=== PATIENT | male | born 1970 | race Caucasian/White ===

== ENCOUNTER 2016-08-13 15:31 | Emergency (ER) | payer BC, MEDICAID ==
[2016-08-13 15:41] VITALS: BP 116/87
--- NOTE | 2016-08-13 16:05 | ED Physician Chart ---
Chief Complaint/HPI - Patient Information Date Seen:: 08/13/16 Time Seen:: 15:59 Chief Complaint:: rt knee pain History of Present Illness:: pt has had pain at rt knee x 2-3 days. thinks he had a spider bite. had some drainage last nt. not sure of fever but felt warm last nt. had a boil in lt armpit 2 ma. denies other hosp admissions. on asa but denies other meds. no pmh. nkda. no local pmd. Allergies:: Allergies Allergy/AdvReac Type Severity Reaction Status Date / Time No Known Allergies Allergy Verified 08/13/16 15:38 Vitals:: Vital Signs - 8 hr 08/13/16 08/13/16 15:40 15:41 Temp 98.1 F HR 99 RR 16 BP 116/87 116/87 O2 Sat % 98 Historian:: Patient, Family Member Review of Systems - Review of Systems General/Constitutional: Fever (?), No fever, No chills, No weight loss, No weakness, No diaphoresis, No edema, No loss of appetite Skin: No skin lesions, Rash, No bruising Head: No headache, No light-headedness Eyes: No loss of vision, No pain, No diplopia ENT: No earache, No nasal drainage, No sore throat, No tinnitus Neck: No neck pain, No swelling, No thyromegaly, No stiffness, No mass noted Cardio Vascular: No chest pain, No palpitations, No PND, No orthopnea, No edema Pulmonary: No SOB, No cough, No sputum, No wheezing GI: No nausea, No vomiting, No diarrhea, No pain, No melena, No hematochezia, No constipation, No hematemesis G/U: No dysuria, No frequency, No hematuria Musculoskeletal: No bone or joint pain, No back pain, No muscle pain Endocrine: No polyuria, No polydipsia Psychiatric: No prior psych history, No depression, No anxiety, No suicidal ideation Hematopoietic: No bruising, No lymphadenopathy Allergic/Immuno: No urticaria, No angioedema Neurological: No syncope, No focal symptoms, No weakness, No paresthesia, No headache, No seizure, No dizziness, No confusion, No vertigo Past Medical History - Past Medical History Past Medical History: No significant medical hx, Other (boil rt armpit 2m.a.) Social History: Smoker Medication: Reviewed Family Medical History - Family Member Mother Hx Family Cancer: No Hx Family Coronary Artery Disease: No Hx Family Congestive Heart Failure: No Hx Family Hypertension: No Hx Family Stroke: No Hx Family Diabetes: No Hx Family Dementia: No Hx Family AIDS: No Hx Family HIV: No Hx Family Psychiatric Problems: No Hx Family Tuberculosis: No Physical Exam - Physical Examination General/Constitutional: Awake, Well-developed, well-nourished, Alert, No distress, GCS 15, Non-toxic appearing, Ambulatory Head: Atraumatic Eyes: Lids, conjuctiva normal, PERRL, EOMI Skin: Nl inspection, No rash, No skin lesions, No ecchymosis, Well hydrated, No lymphadenopathy ENMT: External ears, nose nl, Nasal exam nl, Lips, teeth, gums nl Neck: Nontender, Full ROM w/o pain, No JVD, No nuchal rigidity, No bruit, No mass, No stridor Respiratory: Nl effort/Exclusion, Clear to Auscultation, No Wheeze/Rhonchi/Rales Cardio Vascular: RRR, No murmur, gallop, rubs, NL S1 S2 GI: No tenderness/rebounding/guarding, No organomegaly, No hernia, Normal BS's, Nondistended, No mass/bruits, No McBurney tenderness : No CVA tenderness Extremities: No tenderness or effusion, Full ROM, normal strength in all extremities, No edema, Normal digits & nails Other Extremities comments:: there is a 1.5 inch red warm spot at medial low rt knee. it has a central scab about 1 cm across and has apparently been draining before. there is not fluctuance. knee has no effusion. pt can passively bend knee ot 90 degrees with no apparent pain. no calf edema. no demi sx. Neuro/Psych: Alert/oriented, DTR's symmetric, Normal sensory exam, Normal motor strength, Judgement/insight normal, Mood normal, Normal gait, No focal deficits Misc: normal gait, Normal back, No paraspinal tenderness Labs/Radiology/EKG Results - Lab Results Results: Laboratory Tests 08/13/16 08/13/16 08/13/16 16:21 16:21 16:21 WBC 11.3 H RBC 4.94 Hgb 14.3 Hct 42.8 MCV 86.6 MCH 29.0 MCHC Differential 33.4 RDW 12.8 Plt Count 230 MPV 7.7 Neutrophils % 71.5 Lymphocytes % 16.1 L Monocytes % 8.4 Eosinophils % 0.8 Basophils % 3.2 H Sodium 134 L Potassium 4.1 Chloride 102 Carbon Dioxide 27.8 Anion Gap 8.3 BUN 15 Creatinine 1.2 Est GFR ( Amer) > 60.0 Est GFR (Non-Af Amer) > 60.0 BUN/Creatinine Ratio 12.5 Glucose 132 H Whole Bld Lactic Acid 0.84 Calcium 9.6 Total Bilirubin 0.7 AST 13 ALT 27 Alkaline Phosphatase 56 Total Protein 6.6 Albumin 4.2 Globulin 2.4 Albumin/Globulin Ratio 1.8 Assessment - Assessment General Assessment: cx obtained from rt medial knee by scraping off scab and small drop of pus exuded. no deep abscess identified. sent to lab ED Septic Shock - . Is Septic Shock (SBP<90, OR Lactate>4 mmol\L) present?: No - <6hrs of presentation: Vital Signs: Vital Signs - 8 hr 08/13/16 08/13/16 15:40 15:41 Temp 98.1 F HR 99 RR 16 BP 116/87 116/87 O2 Sat % 98 Reassessment (Disposition) - Reassessment Reassessment:: dw pt...labs ok x slt wbc elevation. no fever or instability seen in ed. pt appears stable enough to try outpt regimen of keflex w norco for pain. he requests crutch. I have seen no evidence of knee joint effusion and pt has good rom ability to bend knee. have given fu plan..see pmd or return here in 2-3 days. return sooner if high fever/spreading redness.. rx kef;shahla, norco 5s no 15 Reassessment Condition:: Improved - Diagnosis Diagnosis:: local cellulitis medial rt knee region. - Aftercare/Follow up Instructions Aftercare/Follow-Up Instructions:: Counseled pt & family regarding lab results/ diagnosis & need follow up - Patient Disposition Discharge/Transfer:: Home Condition at Disposition:: Improved ED Discharge Plan - Patient Disposition Instructions: Cellulitis Accepting Physician: Oswaldo Navarrete [Active] - 1-3 Days
[2016-08-13] MEDS ORDERED: ceFAZolin 2 GM in Sodium Chloride 0.9% 100 ML IV ONE (16:09)
[2016-08-13 16:32] LABS: % BASOPHILS 3.2 % (0.0-2.0); % EOSINOPHILS 0.8 % (0.0-5.0); % LYMPHOCYTES 16.1 % (20.0-50.0); % MONOCYTES 8.4 % (2.0-10.0); % NEUTROPHILS 71.5 % (40.0-80.0); HEMATOCRIT 42.8 % (39.0-49.0); HEMOGLOBIN 14.3 gm/dL (13.2-17.3); MEAN CELL VOLUME 86.6 fl (80-99); MEAN CORPUSCULAR HGB CONC 33.4 pg (28.0-36.0); MEAN PLATELET VOLUME 7.7 fl; NEUTROPHILE ABSOLUTE 8.1 Th/cmm (1.8-8.0); PLATELET COUNT 230 Th/cmm (150-400); RED BLOOD COUNT 4.94 Mil/cmm (4.30-5.70); RED CELL DISTRIBUTION WIDTH 12.8 % (11.5-20.0); WHITE BLOOD COUNT 11.3 Th/cmm (4.8-10.8)
[2016-08-13 16:49] LABS: ALB/GLOB RATIO 1.8 (1.0-1.8); ALKALINE PHOSPHATASE 56 U/L (34-104); ANION GAP 8.3 (7.0-16.0); BILIRUBIN,TOTAL 0.7 mg/dL (0.3-1.0); BUN - UREA NITROGEN 15 mg/dL (7-25); BUN/CREATININE RATIO 12.5; CALCIUM SERUM 9.6 mg/dL (8.6-10.3); CARBON DIOXIDE 27.8 mEq/L (21.0-31.0); CHLORIDE 102 mEq/L (98-107); CREATININE - SERUM 1.2 mg/dL (0.7-1.3); GLUCOSE 132 mg/dL (70-105); POTASSIUM SERUM 4.1 mEq/L (3.5-5.1); SGOT 13 U/L (13-39); SGPT/ALT 27 U/L (7-52); SODIUM SERUM 134 mEq/L (136-145)
== END 2016-08-13 17:55 | disposition home or self-care (01) ==
LOC: ER 15:31
DX: L03.115 Cellulitis of right lower limb (principal); F17.200 Nicotine dependence, unspecified, uncomplicated
CPT/HCPCS: 99284; 96365; 36415; 83605; 85025; 87070; 80053; 87040 ×2; J0690; Z7502

== ENCOUNTER 2016-08-16 12:44 | Emergency (ER) | payer MEDICAID ==
--- NOTE | 2016-08-16 13:15 | ED Physician Chart ---
Chief Complaint/HPI - Patient Information Date Seen:: 08/16/16 Time Seen:: 13:14 Chief Complaint:: INFECTION RT KNEE X 1 WEEK. History of Present Illness:: This 45-year-old male started having an infection involving the right knee 7 days ago. On the first day of the infection he believes that he had a fever. This story was that he was crawling around in the attic and thought that he had a spider bite over the knee. Patient was seen in the emergency department 4 days ago and started on Keflex. Patient has noted that since then there is been no improvement and today he had a drainage from the center of the infected region. He denies any recent fever, chills or diaphoresis. Past medical history is negative for diabetes. Allergies:: Allergies Allergy/AdvReac Type Severity Reaction Status Date / Time No Known Allergies Allergy Verified 08/13/16 15:38 Review of Systems - Review of Systems General/Constitutional: Fever (fever only on the first day of the illness.), No chills, No weight loss, No weakness, No diaphoresis, No edema, No loss of appetite Skin: Rash, Other (patient has erythema and warmth of an area approximately 6 x 8 cm over the right knee. No regional lymphadenopathy present.) Head: No headache, No light-headedness Eyes: No loss of vision, No pain, No diplopia ENT: No earache, No sore throat, No tinnitus Neck: No neck pain, No swelling, No stiffness, No mass noted Cardio Vascular: No chest pain, No palpitations, No orthopnea, No edema Pulmonary: No SOB, No cough, No sputum, No wheezing GI: No nausea, No vomiting, No diarrhea, No pain, No constipation G/U: No dysuria, No frequency, No hematuria, No nacturia Musculoskeletal: No muscle pain, Other (painful right knee region.) Endocrine: No polyuria, No polydipsia Psychiatric: No prior psych history, No suicidal ideation Hematopoietic: No bruising, No lymphadenopathy Allergic/Immuno: No urticaria, No angioedema Neurological: No syncope, No focal symptoms, No weakness, No paresthesia, No headache, No seizure, No dizziness, No confusion, No vertigo Past Medical History - Past Medical History Social History: Smoker (approximately half pack a day.), Alcohol (about a sixpack of beer per week.), Lives With Parents, Employed Employment:: No IV drug abuse. 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 Family Medical History - Family Member Mother Hx Family Cancer: No Hx Family Coronary Artery Disease: No Hx Family Congestive Heart Failure: No Hx Family Hypertension: No Hx Family Stroke: No Hx Family Diabetes: No Hx Family Dementia: No Hx Family AIDS: No Hx Family HIV: No Hx Family Psychiatric Problems: No Hx Family Tuberculosis: No Physical Exam - Physical Examination General/Constitutional: Awake, Well-developed, well-nourished, Alert, No distress, GCS 15, Non-toxic appearing, Ambulatory Head: Atraumatic Eyes: Lids, conjuctiva normal, PERRL, EOMI Skin: No rash Other Skin comments:: Patient has erythemic rash over the right knee measuring approximately 6 x 8 cm. There was no associated lymphangitis. Patient has an open draining duration over the right knee. No associated fluctuance. ENMT: Nasal exam nl, Lips, teeth, gums nl, Oropharynx nl, Tonsils nl Neck: Nontender, Full ROM w/o pain, No JVD, No nuchal rigidity, No mass, No stridor Respiratory: Nl effort/Exclusion, Clear to Auscultation, No Wheeze/Rhonchi/Rales Cardio Vascular: RRR, No murmur, gallop, rubs, NL S1 S2 Other Cardio Vascular comments:: Good pulses all 4 extremities. : No CVA tenderness, NL external genitalia (tenderness to palpation over the right knee.) Extremities: Full ROM, normal strength in all extremities, No edema Neuro/Psych: Alert/oriented, Normal sensory exam, Normal motor strength, Judgement/insight normal, Mood normal, Normal gait, No focal deficits Misc: Normal back, No paraspinal tenderness Labs/Radiology/EKG Results - Lab Results Results: Results from the wound infection on the prior visit was positive for MRSA which was sensitive to both tetracycline and Bactrim. Assessment - Assessment General Assessment: CASE SUMMARY: this 45-year-old male was in the emergency department a week ago for an infection involving the right knee. The wound culture was sent and the patient was started on cephalexin. Results of the wound culture were positive for MRSA and the patient was contacted by phone. He reported that he thinks his symptoms are getting worse, rather than better. He was advised to return to the emergency department for reevaluation and change of medications. Upon arrival he was awake and alert and with normal vital signs. Physical examination showed a arithmetic patch involving the region of the right knee that measured approximately 6 x 8 cm in diameter. It was hot to the touch and tender to palpation. An IV was started in the patient received 1 g of vancomycin IV. He was advised to discontinue taking the cephalexin. The prescription was written for both Bactrim and tetracycline, antibiotics to which the MRSA specimen was sensitive. The area of the cellulitis/abscess was outlined with a sharpie and the patient was advised to return to the ER in 24 hours for reevaluation. He was further advised to return sooner if the redness spread beyond the borders outlined by the sharpie. Discharged in good condition. MDM: DDX for INFECTION IN THE RT KNEE AREA: NOT Septic Arthritis based no physical exam of the joint which had no effusion and full ROM. NOT Necrotizing fasciitis based on the patient's history and physical examination. NOT Streptococcal cellulitis based on the positive MRSA culture. NOT Pseudomonas cellulitis based on the wound culture showing MRSA. ED Septic Shock - . Is Septic Shock (SBP<90, OR Lactate>4 mmol\L) present?: No Reassessment (Disposition) - Reassessment Reassessment Condition:: Improved - Diagnosis Diagnosis:: MRSA CELLULITIS\ABSCESS RT KNEE REGION Patient was given a prescription for Bactrim DS to be taken twice a day for 10 days. Is also given a prescription for tetracycline 500 mg to be taken 4 times a day for 10 days. Patient was advised to return to the emergency department tomorrow for a recheck of the cellulitis margins. Return sooner for any significant worsening of pain or spread of the infection. - Aftercare/Follow up Instructions Aftercare/Follow-Up Instructions:: Counseled pt regarding lab results/diagnosis & need follow up, Counseled pt & family regarding lab results/diagnosis & need follow up - Patient Disposition Discharge/Transfer:: Home ED Discharge Plan - Patient Disposition Admit/Discharge/Transfer: PT DISCHARGED HOME Condition at Disposition: Improved Instructions: MRSA Overview
== END 2016-08-16 14:23 | disposition home or self-care (01) ==
LOC: ER 12:44
DX: L08.89 Other specified local infections of the skin and subcutaneous tissue (principal); F17.200 Nicotine dependence, unspecified, uncomplicated
CPT/HCPCS: 99284; 96365; J3370 ×2; Z7502